=== PATIENT | female | born 1935 | race Caucasian/White ===

== ENCOUNTER 2019-11-08 10:15 | Emergency (ER) | payer MEDICARE, MEDICAID ==
--- OUTSIDE RECORDS SUMMARY | 2019-11-08 10:25 | XMS REPORT | Continuity of Care Document ---
:1935 External Reference #:[id number] Author Name Tiara Augustine O.D. Address [address] [place] [address] Care Team Providers Name Role Phone Rich Cooper MD - Cardiovascular Care Team Information [employer] As[employer]er Disease Trino De Jesus M.D. - Endocrinology, Care Team Information [employer] Assembler [phone] Diabetes & Metabolism Problems Active Problems Provider Date Type 2 diabetes mellitus Onset: Essential hypertension Onset: Atrial fibrillation Onset: Arthritis Onset: Headache Onset: Hypercholesterolemia Onset: Cerebrovascular accident Onset: Moderate nonproliferative diabetic Severiano Hill M.D. Onset: 06/17/2015 retinopathy Presence of intraocular lens Severiano Hill M.D. Onset: 06/17/2015 Vitreous degeneration Severiano Hill M.D. Onset: 01/11/2017 Type 2 diabetes mellitus with moderate Severiano Hill M.D. Onset: 2016 nonproliferative diabetic retinopathy without macular edema, bilateral Bilateral age-related nonexudative macular Tiara Augustine O.D. Onset: degeneration Foreign body in cornea, left eye, initial Alphonse Herrera M.D. Onset: 11/30 encounter Alzheimer's disease Onset: Long-term current use of drug therapy Tiara Augustine O.D. Onset: 2018 Tear film insufficiency Tiara Augustine O.D. Onset: 04/20/2019 Social History Type Date Description Comments Sex Unknown ETOH Use Denies alcohol use Tobacco Use Start: Unknown Patient has never smoked Recreational Drug Use Denies Drug Use Smoking Status Reviewed: 10/05/19 Patient has never smoked Allergies, Adverse Reactions, Alerts Active Allergies Reaction Severity Comments Date Novocain tingling in feet and hands 06/17/2015 Medications Active Medications SIG Qnty Indications Ordering Provider Date Preservision Areds 1 tab by mouth Tiara Giles 12/11/2018 Capsules twice a day Red Augustine Glipizide Unknown 5mg Tablets Donepezil HCL Trino De Jesus M.D. 5mg Tablets Glyburide Unknown 5mg Tablets Gabapentin Unknown 100mg Capsules Januvia Trino De Jesus M.D. 50mg Tablets Xarelto Trino De Jesus M.D. 20mg Tablets Nitroglycerin Unknown 0.4mg Tablets Sub Contour Next Blood Unknown Glucose Test Strips Immunizations Description No Information Available Vital Signs Description No Information Available Results Description No Information Available Procedures Date Code Description Status 04/20/2019 81252 Scanning Computerized Opthalmic Diagnostic Posterior Seg Completed Retina 04/20/2019 36957 Est Patient Comprehensive Exam Completed Medical Devices Description No Information Available Encounters Description No Information Available Assessments Date Code Description Provider 10/05/2019 H35.3131 Nonexudative age-related macular Tiara Augustine O.D. degeneration, bilateral, early dry stage 10/05/2019 E11.3293 Type 2 diabetes mellitus with mild Tiara Augustine O.D. nonproliferative diabetic retinopathy without macular edema, bilateral 10/05/2019 H43.813 Vitreous degeneration, bilateral Tiara Augustine O.D. 10/05/2019 Z96.1 Presence of intraocular lens Tiara Augustine O.D. 10/05/2019 H04.123 Dry eye syndrome of bilateral lacrimal Tiara Augustine O.D. glands 04/20/2019 E11.3393 Type 2 diabetes mellitus with moderate Tiara Augustine O.D. nonproliferative diabetic retinopathy without macular edema, bilateral 04/20/2019 H35.3131 Nonexudative age-related macular Tiara Augustine O.D. degeneration, bilateral, early dry stage 04/20/2019 Z96.1 Presence of intraocular lens Tiara Augustine O.D. 04/20/2019 H43.813 Vitreous degeneration, bilateral Tiara Augustine O.D. 04/20/2019 Z79.84 long term care pharmacist (current) use of oral Tiara Augustine O.D. hypoglycemic drugs 04/20/2019 H04.123 Dry eye syndrome of bilateral lacrimal Tiara Augustine O.D. glands Plan of Treatment Future Appointment(s):04/23/2020 11:30 am - Tiara Augustine O.D. at Severiano Hill MD, 10/05/2019 - Tiara Augustine O.D.H35.3131 Nonexudative age- related macular degeneration, bilateral, early dry stageComments:CONTINUE TO TAKE AREDS 2 VITAMIN FORMULAFollow up:6 Month Follow Up OCT MAC You can expect to have your eyes dilated at your next visit. If Dr. Augustine orders any additional testing, it may require extra time. We recommend that you bring sunglasses,as dilation drops often make you light sensitive until they wear off. We always recommend you bring someone to drive you home if you are uncomfortable driving with your eyes dilated. If you have any questions before your next visit, feel free to call our office at .L14.7509 Type 2 diabetes mellitus with mild nonproliferative diabetic retinopathy without macular edema, [id number] Vitreous degeneration, bilateralComments:You have a Posterior Vitreous Detachment. Please read the pamphlet that was given to you. If you have any changes in your floaters or flashing lights, please contact this office.Z96.1 Presence of intraocular lensComments:The artificial lens implants in both eyes appear to be stable at this time.H04.123 Dry eye syndrome of bilateral lacrimal glandsComments:Smoking can increase the risk of developing or worsening any eye related disease, as well as affect your overall health. If you are a smoker, we strongly recommend that you quit.If you are not a smoker, we strongly recommend that you do not start. CONTINUE TO USE ARTIFICIAL TEARS NEEDEDUSE A HOT COMPRESS FOR 5-10 MINUTES ONCE A DAY Functional Status Description No Information Available Mental Status Description No Information Available Referrals Description No Information Available
--- NOTE | 2019-11-08 11:20 | ED ---
Upper Extremity Pain - HPI Summary HPI Summary: 84 year old F with hx dementia arriving via private car to [facility] accompanied by son complains of bilateral shoulder pain and hip pain since today 11/08/2019 AM. Son visited patient this morning before breakfast at her [facility] and found her on the floor. Son is unsure how long patient was on the floor. Son called EMS who did vitals and recommended patient go to the ED to be evaluated. Son brought patient to the ED. Son states patient had a fall 2 weeks ago and has since been having right lower extremity swelling for which she has been seeing her primary care provider and has had imaging done and scheduled. The patient rates the pain 0/10 in severity. Symptoms aggravated by nothing. Symptoms alleviated by nothing. Medications reviewed. Allergies noted. Home Medications Medication Instructions Recorded Confirmed Type Donepezil HCL (NF) [Aricept (NF)] 10 mg PO DAILY 11/08/19 11/08/19 History Gabapentin CAP(*) [Neurontin 100 100 mg PO TID 11/08/19 11/08/19 History mg CAP(*)] Rivaroxaban TAB(*) [Xarelto 20 mg] 20 mg PO DAILY 11/08/19 11/08/19 History Sitagliptin (NF) [Januvia (NF)] 50 mg PO DAILY 11/08/19 11/08/19 History Vit A/Vit C/Vit E/Zinc/Copper 1 each PO BID 11/08/19 11/08/19 History [Preservision Areds Softgel] glipiZIDE TAB* [Glucotrol TAB*] 5 mg PO BID 11/08/19 11/08/19 History - History of Current Complaint Chief Complaint: EDFall Stated Complaint: FALL INJ PER SON Time Seen by Provider: 11/08/19 10:25 Hx Obtained From: Patient, Family/Specialty Therapist - son Onset/Duration: Started Hours Ago, Still Present Timing: Constant Severity Currently: None Aggravating Factor(s): Nothing Alleviating Factor(s): Nothing - Allergies/Home Medications Allergies/Adverse Reactions: Allergies Allergy/AdvReac Type Severity Reaction Status Date / Time acetaminophen [From Percocet] AdvReac Severe Altered Verified 11/08/19 10:20 Mental Status oxycodone [From Percocet] AdvReac Severe Altered Verified 11/08/19 10:20 Mental Status ezetimibe [From Vytorin] AdvReac Mild Nausea Verified 11/08/19 10:20 procaine [From Novocain] AdvReac Mild Tingling Verified 11/08/19 10:20 simvastatin [From Vytorin] AdvReac Mild Nausea Verified 11/08/19 10:20 Home Medications: Home Medications Donepezil HCL (NF) [Aricept (NF)] 10 mg PO DAILY 11/08/19 [History Confirmed ] Gabapentin CAP(*) [Neurontin 100 mg CAP(*)] 100 mg PO TID 11/08/19 [History Confirmed 11/08/19] Rivaroxaban TAB(*) [Xarelto 20 mg] 20 mg PO DAILY 11/08/19 [History Confirmed ] Sitagliptin (NF) [Januvia (NF)] 50 mg PO DAILY 11/08/19 [History Confirmed 11/08] Vit A/Vit C/Vit E/Zinc/Copper [Preservision Areds Softgel] 1 each PO BID [History Confirmed 11/08/19] glipiZIDE TAB* [Glucotrol TAB*] 5 mg PO BID 11/08/19 [History Confirmed 11/08/19 ] PMH/Surg Hx/FS Hx/Imm Hx Endocrine/Hematology History: Reports: Hx Diabetes - TYPE 2 Denies: Hx Thyroid Disease Cardiovascular History: Denies: Hx Hypertension, Hx Pacemaker/ICD, Other Cardiovascular Problems/ Disorders Respiratory History: Denies: Hx Asthma, Hx Chronic Obstructive Pulmonary Disease (COPD), Other Respiratory Problems/Disorders GI History: Denies: Hx Ulcer, Other GI Disorders Musculoskeletal History: Reports: Hx Arthritis - HANDS,HIPS, Hx Rheumatoid Arthritis, Hx Osteoporosis Denies: Other Musculoskeletal History Sensory History: Reports: Hx Contacts or Glasses - GLASSES Denies: Hx Hearing Aid Opthamlomology History: Reports: Hx Contacts or Glasses - GLASSES Neurological History: Denies: Other Neuro Impairments/Disorders Psychiatric History: Denies: Hx Panic Disorder - Cancer History Hx Chemotherapy: No Hx Radiation Therapy: Yes - RADIATION FOR ECZEMA CHEST AREA YEARS AGO - Surgical History Surgery Procedure, Year, and Place: HYSTERECTOMY, 1980[facility], [facility]. [facility], LEFT KNEE, 1999. 2012,. 05/02/14 LEFT MIDDLE FINGER SURGERY [facility] Hx Anesthesia Reactions: Yes - TROUBLE WITH NOVACAINE Infectious Disease History: No Infectious Disease History: Denies: Hx Clostridium Difficile, Hx Hepatitis, Hx Human Immunodeficiency Virus (HIV), Hx of Known/Suspected MRSA, Hx Shingles, Hx Tuberculosis, Hx Known/ Suspected VRE, Hx Known/Suspected VRSA, History Other Infectious Disease, Traveled Outside the [place] in Last 30 Days - Family History Known Family History: Positive: Other - NEG: Breast CA - Social History Alcohol Use: None Substance Use Type: Reports: None Hx Tobacco Use: No Smoking Status (MU): Never Smoked Tobacco Have You Smoked in the Last Year: No Review of Systems Negative: Fever Positive: Other - bilateral shoulder pain and hip pain, right lower extremity swelling All Other Systems Reviewed And Are Negative: Yes Physical Exam - Summary Physical Exam Summary: Appearance: The patient is well-nourished in no acute distress and in no acute pain. Skin: The skin is warm and dry, and skin color reflects adequate perfusion. HEENT: The head is normocephalic and atraumatic. The pupils are equal and reactive. The conjunctivae are clear and without drainage. Nares are patent and without drainage. Mouth reveals moist mucous membranes, and the throat is without erythema and exudate. The external ears are intact. The ear canals are patent and without drainage. The tympanic membranes are intact. Neck: The neck is supple with full range of motion and non-tender. There are no carotid bruits. There is no neck vein distension. Respiratory: Chest is non-tender. Lungs are clear to auscultation and breath sounds are symmetrical and equal. Cardiovascular: Heart is regular rate and rhythm. There is no murmur or rub auscultated. There is no peripheral edema and pulses are symmetrical and equal. Abdomen: The abdomen is soft and non-tender. There are normal bowel sounds heard in all four quadrants and there is no organomegaly palpated. Musculoskeletal: There is no back tenderness noted. Extremities are non-tender with full range of motion. There is good capillary refill. There is no peripheral edema or calf tenderness elicited. Neurological: Patient is alert and oriented to person, place and time. The patient has symmetrical motor strength in all four extremities. Cranial nerves are grossly intact. Deep tendon reflexes are symmetrical and equal in all four extremities. Psychiatric: The patient has an appropriate affect and does not exhibit any anxiety or depression. GCS: 15 Triage Information Reviewed: Yes Vital Signs On Initial Exam: Initial Vitals Temp Pulse Resp BP Pulse Ox 97.7 F 78 16 136/91 98 11/08/19 10:18 11/08/19 10:18 11/08/19 10:18 11/08/19 10:18 11/08/19 10:18 Vital Signs Reviewed: Yes Procedures - Sedation Patient Received Moderate/Deep Sedation with Procedure: No Diagnostics - Vital Signs Vital Signs Temp Pulse Resp BP Pulse Ox 11/08/19 10:18 97.7 F 78 16 136/91 98 - Laboratory Result Diagrams: 11/08/19 11:36 11/08/19 11:36 Lab Statement: Any lab studies that have been ordered have been reviewed, and results considered in the medical decision making process. - CT Brain CT Interpretation Completed By: Radiologist - IMPRESSION: #. No CT evidence for traumatic brain injury or acute intracranial process. ED physician has reviewed this imaging report. Re-Evaluation - Re-Evaluation First Eval Re-Evaluation Time: 13:41 Comment: patient ambulated well in the ED. patient and son agree to discharge Course/Dx - Course Course Of Treatment: Ms. Hampton essentially had no complaints while she was here. It's unknown how long she was on the floor and labs and CT were obtained. She did have a slight elevation of her CPK but nothing dangerous. She was able to ambulate here and I will discharge her to follow-up as needed. - Diagnoses Provider Diagnoses: Fall Discharge ED - Sign-Out/Discharge Documenting (check all that apply): Patient Departure - Discharge Plan Condition: Stable Disposition: HOME Patient Education Materials: Fall Prevention for Older Adults (ED), Head Injury (ED) Referrals: Trino De Jesus MD [Primary Care Provider] - 2 Days Additional Instructions: Follow up with your primary care provider in 2-3 days. Return to the Emergency Department for new or worsening symptoms. - Billing Disposition and Condition Condition: STABLE Disposition: Home - Attestation Statements Document Initiated by Scribe: Yes Documenting Scribe: Analia Escalera Provider For Whom Mihir is Documenting (Include Credential): Jesse Brand MD Scribe Attestation: Analia Merchant, scribed for Jesse Brand MD on 11/08/19 at 2109. Scribe Documentation Reviewed: Yes Provider Attestation: The documentation as recorded by the Analia coyne accurately reflects the service I personally performed and the decisions made by me, Jesse Brand MD Status of Scribe Document: Viewed
[2019-11-08 11:44] LABS: ABS Basophils 0.1 10^3/ul (0-0.2); ABS Lymphocytes 0.6 10^3/ul (1.0-4.8); ABS Monocytes 0.6 10^3/ul (0-0.8); ABS Neutrophils 5.4 10^3/ul (1.5-7.7); Eosinophil % 0.5 %; Hematocrit 36 % (35-47); Hemoglobin 11.9 g/dL (12.0-16.0); Lymphocyte % 9.2 %; Mean Corpuscular HGB Conc 33 g/dL (31-36); Mean Corpuscular Hemoglobin 29 pg (27-31); Mean Corpuscular Volume 88 fL (80-97); Mean Platelet Volume 9.1 fL (7.4-10.4); Platelet Count 231 10^3/uL (150-450); Red Blood Count 4.09 10^6 /uL (3.70-4.87); Red Cell Distribution Width 16 % (10-15); White Blood Count 6.8 10^3/uL (3.5-10.8)
[2019-11-08 11:59] LABS: Albumin/Globulin Ratio 2.1 (1-3); BUN/Creatinine Ratio 34.7 (8-20); EGFR African American 145.9 (>60); EGFR Non-African American 120.6 (>60); Globulin 1.9 g/dL (2-4); Potassium 3.9 mmol/L (3.5-5.0); Total Protein 5.9 g/dL (6.4-8.9)
[2019-11-08 13:51] VITALS: BP 133/71
== END 2019-11-08 13:50 | disposition home or self-care (01) ==
LOC: ED 10:15
DX: M25.512 Pain in left shoulder (principal); M25.511 Pain in right shoulder; M25.559 Pain in unspecified hip; M79.89 Other specified soft tissue disorders; W19.XXXA Unspecified fall, initial encounter; Z91.81 History of falling; Y92.129 Unspecified place in nursing home as the place of occurrence of the external cause; E11.9 Type 2 diabetes mellitus without complications; Z79.84 Long term (current) use of oral hypoglycemic drugs; Z79.01 Long term (current) use of anticoagulants; Z79.899 Other long term (current) drug therapy; Z88.6 Allergy status to analgesic agent; Z88.4 Allergy status to anesthetic agent; Z88.5 Allergy status to narcotic agent; Z88.8 Allergy status to other drugs, medicaments and biological substances
CPT/HCPCS: 36415; 70450; 80053; 82550; 85025; 96374; 99282; 99283

== ENCOUNTER 2020-07-14 07:11 | Inpatient (IN) ==
[2020-07-15] MEDS ORDERED: NS 0.9% 1000 ml BAG 1,000 ML IV ONE ×2 (14:12→18:38)
[2020-07-15] MEDS ORDERED: cefTRIAXone 1 gm/50 mL NS BAG 1 GM/50 ML BAG IV ONE (15:15)
[2020-07-15] MEDS ORDERED: DOXYcycline 100 MG in NS 0.9% 250 ml 250 ML IVPB ONE (15:17)
[2020-07-15] MEDS ORDERED: Dextrose 50% Syringe 50 ml 25 GM/50 ML SYRINGE IV PUSH PRN (17:13)
[2020-07-15] MEDS ORDERED: Al Hydrox/Mg Hydrox/Simet LIQ 30 ML UDC PO PRN (17:28)
[2020-07-15] MEDS ORDERED: NS 0.9% 1000 ml BAG 1,000 ML IV SCH (17:30)
[2020-07-15 18:03] LABS: Troponin I 0.52 ng/mL (<0.03)
[2020-07-15 18:05] LABS: ALT 20 U/L (7-52); AST 19 U/L (13-39); Albumin/Globulin Ratio 1.7 (1-3); Alkaline Phosphatase 65 U/L (34-104); Anion Gap 11 mmol/L (2-11); BUN/Creatinine Ratio 53.6 (8-20); Blood Urea Nitrogen 37 mg/dL (6-24); CO2 Carbon Dioxide 21 mmol/L (22-32); Calcium 9.6 mg/dL (8.6-10.3); Chloride 106 mmol/L (101-111); EGFR African American 98.1 (>60); EGFR Non-African American 81.1 (>60); Globulin 2.4 g/dL (2-4); Glucose 427 mg/dL (70-100); Hematocrit 33 % (35-47); Hemoglobin 10.8 g/dL (12.0-16.0); Magnesium 2.2 mg/dL (1.9-2.7); Mean Corpuscular HGB Conc 33 g/dL (31-36); Mean Corpuscular Hemoglobin 29 pg (27-31); Mean Corpuscular Volume 90 fL (80-97); Mean Platelet Volume 9.9 fL (7.4-10.4); Platelet Count 216 10^3/uL (150-450); Potassium 4.3 mmol/L (3.5-5.0); Red Blood Count 3.69 10^6 /uL (3.70-4.87); Red Cell Distribution Width 16 % (10-15); Sodium 138 mmol/L (135-145); Total Protein 6.4 g/dL (6.4-8.9); White Blood Count 12.1 10^3/uL (3.5-10.8)
[2020-07-15 18:10] LABS: Activated Partial Thrombo Time 30.9 seconds (26.0-38.0); INR 1.45 (0.82-1.09)
[2020-07-15 18:40] LABS: TSH Ultra Thyroid Stim Horm 0.85 mcIU/mL (0.34-5.60)
[2020-07-15 18:45] LABS: ABS Lymphocytes 0.3 10^3/ul (1.0-4.8); ABS Monocytes 0.6 10^3/ul (0-0.8); ABS Neutrophils 11.2 10^3/ul (1.5-7.7); Lymphocyte % 2.5 %; Nucleated Red Blood Cells % 0.1
[2020-07-15 19:38] LABS: Cholesterol 237 mg/dL; HDL Cholesterol 53.6 mg/dL; LDL Cholesterol 165 mg/dL; Triglycerides 93 mg/dL
[2020-07-15] MEDS: Triamcinolone 0.025% OINT 15 GM TUBE TOPICAL SCH (21:19)
[2020-07-15] MEDS: Nystatin TOP POWDER 15 GM BTL TOPICAL SCH (21:19)
[2020-07-15 21:22] LABS: Anion Gap 11 mmol/L (2-11); BUN/Creatinine Ratio 56.7 (8-20); Blood Urea Nitrogen 38 mg/dL (6-24); CO2 Carbon Dioxide 22 mmol/L (22-32); Calcium 9.2 mg/dL (8.6-10.3); Chloride 108 mmol/L (101-111); EGFR African American 101.5 (>60); EGFR Non-African American 83.9 (>60); Glucose 405 mg/dL (70-100); Potassium 4.2 mmol/L (3.5-5.0); Sodium 141 mmol/L (135-145)
[2020-07-15 21:25] LABS: Troponin I 0.63 ng/mL (<0.03)
[2020-07-16 01:19] LABS: Troponin I 0.92 ng/mL (<0.03)
[2020-07-16 02:20] LABS: Urine Appearance Cloudy; Urine Bilirubin Negative (Negative); Urine Blood Negative (Negative); Urine Color Yellow; Urine Glucose 3+(>=500 mg/dL) (Negative); Urine Ketones 1+ (Negative); Urine Nitrite Negative (Negative); Urine Protein 1+(30 mg/dL) (Negative); Urine Urobilinogen Negative (Negative)
[2020-07-16 02:22] LABS: Urine Bacteria Absent (Absent); Urine Red Blood Cell Absent (Absent); Urine Squamous Epithelial Cell Present (Absent); Urine White Blood Cell Trace(0-5/hpf) (Absent)
[2020-07-16 06:59] LABS: Hematocrit 30 % (35-47); Mean Corpuscular HGB Conc 34 g/dL (31-36); Mean Corpuscular Hemoglobin 30 pg (27-31); Mean Corpuscular Volume 89 fL (80-97); Platelet Count 234 10^3/uL (150-450); Red Blood Count 3.32 10^6 /uL (3.70-4.87); Red Cell Distribution Width 15 % (10-15); White Blood Count 8.3 10^3/uL (3.5-10.8)
[2020-07-16 07:05] LABS: INR 1.31 (0.82-1.09)
[2020-07-16 07:40] LABS: BUN/Creatinine Ratio 68.5 (8-20); Calcium 8.9 mg/dL (8.6-10.3); EGFR African American 130.1 (>60); EGFR Non-African American 107.6 (>60); Potassium 3.8 mmol/L (3.5-5.0)
[2020-07-16 07:42] LABS: Troponin I 1.09 ng/mL (<0.03)
[2020-07-16 09:46] LABS: ABS Basophils 0.1 10^3/ul (0-0.2); ABS Lymphocytes 0.8 10^3/ul (1.0-4.8); ABS Monocytes 0.8 10^3/ul (0-0.8); ABS Neutrophils 6.5 10^3/ul (1.5-7.7); Eosinophil % 0.6 %; Lymphocyte % 9.9 %; Nucleated Red Blood Cells % 0.3
[2020-07-16 09:47] LABS: Acanthocytes 2+
[2020-07-16 09:48] LABS: Burr Cells 1+
[2020-07-16 10:23] LABS: Troponin I 0.77 ng/mL (<0.03)
[2020-07-16] MEDS: Nystatin TOP POWDER 15 GM BTL TOPICAL SCH ×2 (10:58→20:03)
[2020-07-16] MEDS ORDERED: Iodixanol (CONTRAST) 320 MG/ML 100 ML SDV IV ONE (12:33)
[2020-07-16] MEDS: Enoxaparin 60 MG/0.6 ML SYR SUBCUT SCH ×2 (12:51→20:01)
[2020-07-16] MEDS: Metoprolol Tartrate 5 mg VIAL 5 ml VIAL (1 mg/ml) IV SCH ×2 (12:52→19:58)
[2020-07-16] MEDS ORDERED: cefTRIAXone 1 gm/50 mL NS BAG 1 GM/50 ML BAG IVPB SCH (16:00)
[2020-07-16] MEDS: Triamcinolone 0.025% OINT 15 GM TUBE TOPICAL SCH ×2 (17:42→20:03)
[2020-07-16] MEDS ORDERED: Zosyn per Pharmacy NOTE FOLLOW UP SCH (18:00)
[2020-07-16] MEDS ORDERED: Piperacillin/Tazobac ADVAN 3.375 GM in NS 0.9% 100 ml BAG 100 ML IV ONE (18:00)
[2020-07-17] MEDS: ZOSYN 3.375 GM Q8H per EXTENDED INFUSION IV SCH ×3 (01:36→15:58)
[2020-07-17] MEDS: Metoprolol Tartrate 5 mg VIAL 5 ml VIAL (1 mg/ml) IV SCH ×3 (01:36→12:52)
[2020-07-17 06:54] LABS: Hematocrit 32 % (35-47); Hemoglobin 10.6 g/dL (12.0-16.0); Mean Corpuscular HGB Conc 33 g/dL (31-36); Mean Corpuscular Hemoglobin 30 pg (27-31); Mean Corpuscular Volume 90 fL (80-97); Mean Platelet Volume 9.6 fL (7.4-10.4); Platelet Count 237 10^3/uL (150-450); Red Blood Count 3.55 10^6 /uL (3.70-4.87); Red Cell Distribution Width 15 % (10-15); White Blood Count 8.3 10^3/uL (3.5-10.8)
[2020-07-17 07:40] LABS: ABS Basophils 0.1 10^3/ul (0-0.2); ABS Lymphocytes 0.5 10^3/ul (1.0-4.8); ABS Monocytes 0.5 10^3/ul (0-0.8); ABS Neutrophils 7.2 10^3/ul (1.5-7.7); Eosinophil % 0.1 %; Lymphocyte % 5.8 %; Nucleated Red Blood Cells % 0.1
[2020-07-17 07:41] LABS: Burr Cells 1+; Polychromasia 1+
[2020-07-17 07:42] LABS: Acanthocytes 1+
[2020-07-17] MEDS: Enoxaparin 60 MG/0.6 ML SYR SUBCUT SCH (08:25)
[2020-07-17] MEDS: Triamcinolone 0.025% OINT 15 GM TUBE TOPICAL SCH ×2 (08:26→20:07)
[2020-07-17] MEDS: Nystatin TOP POWDER 15 GM BTL TOPICAL SCH ×2 (08:26→20:07)
[2020-07-18] MEDS: ZOSYN 3.375 GM Q8H per EXTENDED INFUSION IV SCH ×3 (01:16→15:38)
[2020-07-18] MEDS: Nystatin TOP POWDER 15 GM BTL TOPICAL SCH ×2 (08:52→21:12)
[2020-07-18] MEDS: Triamcinolone 0.025% OINT 15 GM TUBE TOPICAL SCH ×2 (08:53→21:12)
[2020-07-18 10:54] LABS: % Iron Saturation 7 % (15-55); Iron < 20 ug/dL (50-212); Total Iron Binding Capacity 270 mcg/dL (250-450); Transferrin 193 mg/dL (203-362); Unsaturated Iron Binding < 255 ug/dL
[2020-07-18 10:55] LABS: Ferritin 111.1 ng/mL (11-307)
[2020-07-18] MEDS: NS 0.9% 1000 ml BAG 1,000 ML IV SCH ×2 (12:26→15:43)
[2020-07-18] MEDS ORDERED: NS 0.9% 1000 ml BAG 1,000 ML IV ONE (13:49)
[2020-07-18] MEDS ORDERED: NS 0.9% 500 ml BAG 500 ML IV ONE (20:53)
[2020-07-19] MEDS: ZOSYN 3.375 GM Q8H per EXTENDED INFUSION IV SCH ×3 (00:12→16:22)
[2020-07-19] MEDS ORDERED: Insulin GLARGINE 100 un/ml 10 ml VIAL SUBCUT SCH (09:00)
[2020-07-19] MEDS: Triamcinolone 0.025% OINT 15 GM TUBE TOPICAL SCH (09:13)
[2020-07-19] MEDS: Nystatin TOP POWDER 15 GM BTL TOPICAL SCH ×2 (09:13→20:14)
[2020-07-20] MEDS: ZOSYN 3.375 GM Q8H per EXTENDED INFUSION IV SCH ×3 (00:03→15:28)
[2020-07-20] MEDS: Nystatin TOP POWDER 15 GM BTL TOPICAL SCH ×2 (08:55→21:40)
[2020-07-20] MEDS ORDERED: Magnesium Hydroxide LIQ 30 ML UDC PO PRN (09:14)
[2020-07-21] MEDS: ZOSYN 3.375 GM Q8H per EXTENDED INFUSION IV SCH ×2 (00:45→07:34)
[2020-07-21] MEDS: Morphine ORAL CONCENTRATE 5 MG/0.25 ML ORAL.SYRIN SL PRN ×4 (05:54→21:43)
[2020-07-21] MEDS: Nystatin TOP POWDER 15 GM BTL TOPICAL SCH ×2 (07:34→21:43)
[2020-07-22] MEDS: Nystatin TOP POWDER 15 GM BTL TOPICAL SCH (08:48)
[2020-07-22] MEDS: Morphine ORAL CONCENTRATE 5 MG/0.25 ML ORAL.SYRIN SL PRN ×2 (12:15→19:25)
[2020-07-22] MEDS: Atropine 1% (ORAL/SL) 15 ML BTL SL PRN (13:12)
[2020-07-23] MEDS: Morphine ORAL CONCENTRATE 5 MG/0.25 ML ORAL.SYRIN SL PRN (12:00)
[2020-07-23] MEDS: Atropine 1% (ORAL/SL) 15 ML BTL SL PRN (12:01)
[2020-07-23] MEDS ORDERED: Lorazepam PYXIS KEY PRN (15:19)
[2020-07-23] MEDS ORDERED: LORazepam 2 mg VIAL 1 ml IV PUSH PRN (15:19)
[2020-07-24] MEDS: Atropine 1% (ORAL/SL) 15 ML BTL SL PRN (05:43)
[2020-07-24 07:54] VITALS: BP 107/66
== END 2020-07-24 13:55 | disposition home or self-care (01) | DRG 177 ==
LOC: AA 07:12 → ED 07-15 13:58 → MED 07-15 17:28 → MEDTELE 07-17 16:47 → AA 07-17 16:47 → UNDODISIN 07-24 13:55
PROVIDERS: ADMIT Pediatrics; ATTEND Pediatrics